=== PATIENT | male | born 1990 | race African-American/Black ===

== ENCOUNTER 2016-12-12 08:34 | Emergency (ER) | payer OTHER ==
[~2016-12-12] VITALS: Ht 167.6 cm; Wt 71.7 kg
[~2016-12-12 08:34] MED LIST: AMOXICILLIN,AM875 MG PO; AUGMENTIN 875 M1 TAB PO; AUGMENTIN 875875 MG PO; CIPRO500 MG PO; CIPROFLOXACIN500 MG PO; EYE DROPS; KEFLEX500 M1 PO; MOTRIN600 MG PO; MOTRIN800 MG PO; Motrin,Rufen800 MG PO; NAPROSYN500 MG PO; NKHM; PYRIDIUM200 MG PO; ROBAXIN750 MG PO; VIBRA-TAB100 MG PO; VIBRAMYCIN100 MG PO; ZITHROMAX250 MG PO
[2016-12-12] MEDS ORDERED: AMOXICILLIN500 M2 PO (09:25)
== END 2016-12-12 09:42 | disposition home or self-care (01) ==
LOC: ED 08:34
DX: J02.9 Acute pharyngitis, unspecified (principal); R68.83 Chills (without fever); F17.200 Nicotine dependence, unspecified, uncomplicated; Z88.6 Allergy status to analgesic agent; Z91.018 Allergy to other foods

== ENCOUNTER 2017-12-10 10:53 | Emergency (ER) | payer OTHER ==
[~2017-12-10] VITALS: Ht 167.6 cm; Wt 73.5 kg
[~2017-12-10 10:53] MED LIST changes: +AMOXICILLIN500 M2 PO
[2017-12-10] MEDS ORDERED: MEDROL DOSEPAK4 MG PO (14:14)
[2017-12-10] MEDS ORDERED: CYCLOBENZAPRINE10 MG PO (14:14)
[2017-12-10] MEDS ORDERED: NAPROSYN500 MG PO (14:14)
== END 2017-12-10 19:11 | disposition home or self-care (01) ==
LOC: ED 10:53
DX: S39.012A Strain of muscle, fascia and tendon of lower back, initial encounter (principal); Z88.6 Allergy status to analgesic agent; Z91.018 Allergy to other foods; X58.XXXA Exposure to other specified factors, initial encounter; Y93.89 Activity, other specified; Y92.89 Other specified places as the place of occurrence of the external cause; Y99.8 Other external cause status

== ENCOUNTER 2018-11-24 14:00 | Emergency (ER) | payer SELFPAY ==
[~2018-11-24] VITALS: Ht 170.1 cm; Wt 72.6 kg
[~2018-11-24 14:00] MED LIST changes: +CYCLOBENZAPRINE10 MG PO; +MEDROL DOSEPAK4 MG PO
[2018-11-24 14:56] LABS: BILIRUBIN NEGATIVE (NEGATIVE); BLOOD TRACE-INTACT (NEGATIVE); CLARITY SL CLOUDY (CLEAR); COLOR YELLOW (YELLOW); GLUCOSE NEGATIVE (NEGATIVE); KETONE NEGATIVE (NEGATIVE); LEUKO ESTERASE 1+ (NEGATIVE); NITRITE NEGATIVE (NEGATIVE); PH 7.5 (5.0-9.0); SPECIFIC GRAVITY 1.015 (1.005-1.030)
[2018-11-24 15:03] LABS: BACTERIA TRACE; RBC 0-2 rbc/hpf (0-2); WBC 51-100 wbc/hpf (0-5)
[2018-11-24] MEDS ORDERED: CIPRO500 MG PO (15:08)
== END 2018-11-24 15:20 | disposition home or self-care (01) ==
LOC: ED 14:00
PROVIDERS: Physician Assistant
DX: N39.0 Urinary tract infection, site not specified (principal); Z88.6 Allergy status to analgesic agent; Z91.018 Allergy to other foods